=== PATIENT | female | born 1955 | race Caucasian/White ===

== ENCOUNTER → 2024-09-30 | Outpatient (CLI) | payer OTHER | LOC: M CARPUL 12:53 | PROVIDERS: ATTEND Physician Assistant | DX: I47.10 Supraventricular tachycardia, unspecified (principal) ==

== ENCOUNTER → 2024-10-13 | Outpatient (CLI) | payer OTHER | LOC: M PLAIMG 09:19 → EDUNIT# 12-03 08:00 | PROVIDERS: ATTEND Physician Assistant | DX: I34.81 Nonrheumatic mitral (valve) annulus calcification (principal); I34.0 Nonrheumatic mitral (valve) insufficiency; I37.1 Nonrheumatic pulmonary valve insufficiency ==

== ENCOUNTER → 2024-11-04 | Outpatient (CLI) | payer OTHER | LOC: M CARPUL 10:06 | PROVIDERS: ATTEND Physician Assistant | DX: R94.31 Abnormal electrocardiogram [ECG] [EKG] (principal) | CPT/HCPCS: 93017; A9500 ==